=== PATIENT | male | born 1950 | race Caucasian/White ===

== ENCOUNTER 2018-10-14 20:35 | Emergency (ER) | payer BC, MEDICARE ==
[~2018-10-14] VITALS: Ht 172.7 cm; Wt 88.0 kg
--- NOTE | 2018-10-14 20:35 | NUR ---
Pt ambulatory into ER, placed in room 1b, at bedside.
--- NOTE | 2018-10-14 20:40 | NUR ---
Code Stroke activated per 's order.
--- NOTE | 2018-10-14 20:40 | NUR ---
Called [facility], to call back.
--- NOTE | 2018-10-14 20:40 | NUR ---
Dr. Shrestha at bedside for stroke screening and MSE,
--- NOTE | 2018-10-14 20:42 | NUR ---
Pt. placed on cardiac cath rn and taken off unit via stretcher for CT
[2018-10-14] MEDS ORDERED: SWABABLE VALVE TRANSFER SET EA MC ONE (20:58)
[2018-10-14] MEDS ORDERED: IOHEXOL 350 100 ML INFUS..BTL ONE (20:58)
[2018-10-14 21:01] LABS: BASOPHILS # (AUTO) 0.1 K/uL (0.0-8.0); BASOPHILS % (AUTO) 1.1 % (0.0-2.0); EOSINOPHILS # (AUTO) 0.2 K/uL (0.0-0.7); EOSINOPHILS % (AUTO) 2.7 % (0.0-7.0); HEMATOCRIT 44.6 % (36.7-47.1); HEMOGLOBIN 15.3 g/dL (12.5-16.3); LYMPHOCYTES # (AUTO) 3.1 K/uL (20.0-40.0); MEAN CORPUSCULAR HEMOGLOBIN 32.6 uug (23.8-33.4); MEAN CORPUSCULAR HGB CONC 34 g/dL (32.5-36.3); MEAN CORPUSCULAR VOLUME 95.2 fL (73.0-96.2); MONOCYTES # (AUTO) 0.8 K/uL (2.0-10.0); MONOCYTES % (AUTO) 9.2 % (0.0-11.0); NEUTROPHILS # (AUTO) 4.6 K/uL (1.8-8.9); PLATELET COUNT (AUTO) 143 K/uL (152-348); RED BLOOD CELL COUNT(AUTO) 4.68 MIL/uL (4.06-5.63); WHITE BLOOD COUNT (AUTO) 8.9 K/uL (3.6-10.2)
[2018-10-14 21:09] LABS: POTASSIUM 3.8 mmol/L (3.5-5.1)
--- NOTE | 2018-10-14 21:15 | NUR ---
Pt back from CT, at bedside for re-assessment.
--- NOTE | 2018-10-14 21:36 | NUR ---
Pt. requests hydration - lemon swabs given, awaiting CTA results,
[2018-10-14] MEDS ORDERED: ALPR0.5T8 PO (21:42)
[2018-10-14] MEDS ORDERED: DESV100T PO (21:42)
[2018-10-14] MEDS ORDERED: ALLO100T PO (21:42)
[2018-10-14] MEDS ORDERED: ERYTHROMYCIN 0.5% TOP (21:42)
[2018-10-14] MEDS ORDERED: METO50TA7 PO (21:42)
[2018-10-14] MEDS ORDERED: TRAZ-214 PO (21:42)
[2018-10-14] MEDS ORDERED: BUPR450T3 PO (21:42)
[2018-10-14] MEDS ORDERED: TELM80TA9 PO (21:42)
--- NOTE | 2018-10-14 22:00 | NUR ---
Dr. Shrestha on phone w/ Dr. Brink neurologist - plan is to transfer to [facility]
--- NOTE | 2018-10-14 22:10 | NUR ---
Patient does not wish to proceed with medical care recommended by (Fady ). Patient given information related to possible complications, up to and including , which could occur as a result of leaving the hospital at this time. Patient verbalizes understanding of risks involved due to leaving against medical advice. Patient has signed AMA form. Pt. chooses to go to [facility] per his PCP suggestion. Dr. Shrestha approved d/c of pt., w/ IV intact for IV ease of access upon arrival at [facility], AMA papers signed, left w/ son in private vehicle,
--- NOTE | 2018-10-14 22:15 | NUR ---
Magda called from [facility] for facesheet - informed her that pt. left AMA and is heading to [facility],
== END 2018-10-14 22:27 | disposition left against medical advice (07) ==
LOC: ER 20:38
DX: R47.81 Slurred speech (principal); Z88.0 Allergy status to penicillin; Z88.1 Allergy status to other antibiotic agents; Z79.891 Long term (current) use of opiate analgesic; Z79.2 Long term (current) use of antibiotics; Z79.899 Other long term (current) drug therapy
CPT/HCPCS: 36415; 70450; 70496; 70498; 71045; 80048; 80061; 82962; 84484; 85025; 85730; 93005; 99284; Q9967; 70030-TC; A4663; J3490